=== PATIENT | female | born 1960 | race Caucasian/White ===

== ENCOUNTER 2019-02-12 07:15 | Emergency (ER) | payer BC ==
[2019-02-12 07:32] VITALS: BP 128/58
--- NOTE | 2019-02-12 07:49 | UC ---
Respiratory Complaint HPI - HPI Summary HPI Summary: The patient is a 58-year-old female with the onset yesterday of cough. Her cough is nonproductive. She felt feverish this morning. She has back pain which she attributes to coughing so hard. He denies any chest pain or shortness of breath. She has a history of bronchitis and has had to use inhalers in the past. She denies any myalgias. She denies headache. She denies any nausea vomiting or diarrhea. - History of Current Complaint Chief Complaint: UCGeneralIllness Stated Complaint: COUGH Time Seen by Provider: 02/12/19 07:38 Hx Obtained From: Patient Onset/Duration: Gradual Onset, Lasting Hours Timing: Constant Severity Initially: Mild Severity Currently: Moderate Pain Intensity: 7 - back pain Pain Scale Used: 0-10 Numeric Character: Cough: Productive Aggravating Factors: Exertion Alleviating Factors: Nothing Associated Signs And Symptoms: Positive: Fever - amilcar, Wheezing, Nasal Congestion. Negative: Dyspnea, Chills, Pleuritic Chest Pain, Hemoptysis, Dizziness, Calf Pain, Calf Swelling, Edema, URI, Hoarseness, Sinus Discomfort Related History: Similar Episode/Dx as: - Bronchitis - Allergies/Home Medications Allergies/Adverse Reactions: Allergies Allergy/AdvReac Type Severity Reaction Status Date / Time No Known Allergies Allergy Verified 02/12/19 07:32 PMH/Surg Hx/FS Hx/Imm Hx Previously Healthy: Yes Respiratory History: Bronchitis - Surgical History Surgical History: Yes Surgery Procedure, Year, and Place: Appendectomy, [address] [place] [address] - Family History Known Family History: Positive: Hypertension - Social History Alcohol Use: None Substance Use Type: None Smoking Status (MU): Current Every Day Smoker Type: Cigarettes Amount Used/How Often: 1 ppd Length of Time of Smoking/Using Tobacco: 40 Years Have You Smoked in the Last Year: Yes When Did the Patient Quit Smoking/Using Tobacco: 4 days ago - Immunization History Most Recent Influenza Vaccination: Not the 2015/2016 Season Review of Systems All Other Systems Reviewed And Are Negative: Yes Constitutional: Positive: Fever - amilcar, Fatigue Skin: Positive: Negative Eyes: Positive: Negative ENT: Positive: Sinus Congestion Respiratory: Positive: Cough Cardiovascular: Positive: Negative Gastrointestinal: Positive: Negative Genitourinary: Positive: Negative Motor: Positive: Negative Neurovascular: Positive: Negative Musculoskeletal: Positive: Negative Neurological: Positive: Negative Psychological: Positive: Negative Physical Exam Triage Information Reviewed: Yes Appearance: Well-Appearing, No Pain Distress, Well-Nourished Vital Signs: Initial Vital Signs Temp 98.4 F 02/12/19 07:27 Pulse 86 02/12/19 07:27 Resp 18 02/12/19 07:27 BP 128/58 02/12/19 07:27 Pulse Ox 97 02/12/19 07:27 Vital Signs Reviewed: Yes Eyes: Positive: Conjunctiva Clear ENT: Positive: Hearing grossly normal, Nasal congestion, TMs normal, Uvula midline. Negative: Pharyngeal erythema, Nasal drainage, Tonsillar swelling, Tonsillar exudate, Trismus, Muffled voice, Hoarse voice, Dental tenderness, Sinus tenderness Dental: Negative: Dental Fracture @ Neck: Positive: Supple, Nontender, No Lymphadenopathy Respiratory: Positive: No respiratory distress, No accessory muscle use, Wheezing Cardiovascular: Positive: RRR, No Murmur Musculoskeletal: Positive: ROM Intact, No Edema Neurological: Positive: Alert, Muscle Tone Normal Psychological Exam: Normal Skin Exam: Normal Respiratory Course/Dx - Differential Dx/Diagnosis Provider Diagnosis: Acute bronchitis, viral Discharge ED - Sign-Out/Discharge Documenting (check all that apply): Patient Departure All imaging exams completed and their final reports reviewed: Yes - Discharge Plan Condition: Stable Disposition: HOME Prescriptions: predniSONE [Deltasone 20 MG TAB] 40 mg PO DAILY #8 tab Patient Education Materials: Bronchospasm (ED), How to Use a Metered-Dose Inhaler and a Spacer (ED) Referrals: Bandar Baugh MD [Primary Care Provider] - 1 Week (if not completely better) Additional Instructions: check in 2 days if not improved rest fluids mucinex or robitussin - Billing Disposition and Condition Condition: STABLE Disposition: Home
[2019-02-12] MEDS ORDERED: Albuterol HFA INHALER* 8 gm MDI INH ONE (08:14)
[2019-02-12] MEDS ORDERED: predniSONE TAB* 20 MG PO ONE (08:14)
== END 2019-02-12 08:38 | disposition home or self-care (01) ==
LOC: UCCORT 07:15
DX: J20.8 Acute bronchitis due to other specified organisms (principal); F17.210 Nicotine dependence, cigarettes, uncomplicated
CPT/HCPCS: 71046; 99203; A9270-GY; G0463; J7512

== ENCOUNTER 2019-03-17 07:13 | Emergency (ER) | payer BC ==
[2019-03-17 07:35] VITALS: BP 142/85
--- NOTE | 2019-03-17 08:24 | UC ---
Throat Pain/Nasal Stevie HPI - HPI Summary HPI Summary: 58 yo smoker with 4 week history of cough, without shortness of breath. Does not cough to the point of vomiting. No fever. Took a course of prednisone without improvement. Normal appetite, no fever, no missed work. - History of Current Complaint Chief Complaint: UCRespiratory Stated Complaint: COUGH Time Seen by Provider: 03/17/19 07:56 Hx Obtained From: Patient Onset/Duration: Gradual Onset, Lasting Weeks Severity: Moderate Pain Intensity: 0 Cough: Nonproductive Associated Signs & Symptoms: Positive: Other - some ear pressure.. Negative: Dysphagia, Wheezing, Hoarseness, Sinus Discomfort Related History: Smoking - Epiglottits Risk Factors Epiglottis Risk Factors: Negative - Allergies/Home Medications Allergies/Adverse Reactions: Allergies Allergy/AdvReac Type Severity Reaction Status Date / Time No Known Allergies Allergy Verified 03/17/19 07:33 PMH/Surg Hx/FS Hx/Imm Hx Previously Healthy: Yes - Smokes 1 ppd. - Surgical History Surgical History: Yes Surgery Procedure, Year, and Place: Appendectomy, 1967, [place] - Family History Known Family History: Positive: Hypertension - Social History Occupation: Employed Full-time Lives: With Family Alcohol Use: None Substance Use Type: None Smoking Status (MU): Heavy Every Day Tobacco Smoker Type: Cigarettes Amount Used/How Often: 1 PPD Length of Time of Smoking/Using Tobacco: Since Age 17 Have You Smoked in the Last Year: Yes When Did the Patient Quit Smoking/Using Tobacco: 4 days ago - Immunization History Most Recent Influenza Vaccination: Not the 2014/2015 Season Review of Systems All Other Systems Reviewed And Are Negative: Yes Constitutional: Positive: Negative - sleeping well, no disruption. Skin: Positive: Negative Eyes: Positive: Negative ENT: Positive: Ear Ache - on right Respiratory: Positive: Cough. Negative: Shortness Of Breath Cardiovascular: Negative: Palpitations, Chest Pain Gastrointestinal: Negative: Abdominal Pain, Vomiting Genitourinary: Positive: Negative Motor: Positive: Negative Neurovascular: Positive: Negative Musculoskeletal: Positive: Negative Neurological: Positive: Headache - off and on, not new Psychological: Positive: Negative Is Patient Immunocompromised?: No Physical Exam Triage Information Reviewed: Yes Appearance: Well-Appearing Vital Signs: Initial Vital Signs Temp 98.3 F 03/17/19 07:32 Pulse 74 03/17/19 07:32 Resp 16 03/17/19 07:32 BP 142/85 03/17/19 07:32 Pulse Ox 98 03/17/19 07:32 ENT: Positive: Pharyngeal erythema, TM dull - right with retraction. Neck: Positive: Supple, Nontender, No Lymphadenopathy Respiratory: Positive: Lungs clear, Normal breath sounds Musculoskeletal Exam: Normal Neurological Exam: Normal Psychological Exam: Normal Skin Exam: Normal Throat Pain/Nasal Course/Dx - Course Course Of Treatment: albuterol for post infectious cough. Use of suppressants. - Differential Dx/Diagnosis Differential Diagnosis/HQI/PQRI: URI Provider Diagnosis: Cough Discharge ED - Sign-Out/Discharge Documenting (check all that apply): Patient Departure All imaging exams completed and their final reports reviewed: No Studies - Discharge Plan Condition: Stable Disposition: HOME Prescriptions: Albuterol HFA INHALER* [Ventolin HFA Inhaler*] 2 puff INH Q6H PRN #1 mdi PRN Reason: Cough Patient Education Materials: Upper Respiratory Infection (ED) Referrals: Bandar Baugh MD [Primary Care Provider] - Additional Instructions: Use albuterol with use of aerochamber for control of cough/ You hae a post infectious cough, and this could last for several more weeks. You might try use of delsym, and over the counter cough suppressant. Follow up if you have increasing shortness of breath or chest pain, or develop a new fever. Please make efforts to stop smoking. - Billing Disposition and Condition Condition: STABLE Disposition: Home
== END 2019-03-17 08:33 | disposition home or self-care (01) ==
LOC: UCCORT 07:13
DX: R05 Cough (principal); H92.01 Otalgia, right ear; R51 Headache; F17.210 Nicotine dependence, cigarettes, uncomplicated
CPT/HCPCS: 99212; G0463